=== PATIENT | male | born 1960 | race Caucasian/White ===

== ENCOUNTER 2023-04-18 06:49 | Outpatient (CLI) | payer BC, SELFPAY ==
[2023-04-18 08:11] LABS: Basophils Absolute Auto 0.1 K/mm3 (0.0-0.1); Basophils Percent Auto 0.4 % (0.2-1.2); Eosinophils Absolute Auto 0.1 K/mm3 (0-0.3); Eosinophils Percent Auto 0.5 % (0-4.4); Hemoglobin 14.5 g/dL (14.0-18.0); Immature Granulocyte Absolute 0.09 K/mm3 (0.00-0.031); Immature Granulocyte Percent A 0.7 % (0-0.5); Lymphocytes Absolute Auto 1.21 K/mm3 (0.9-3.2); Lymphocytes Percent Auto 9.4 % (18.3-44.2); Mean Corpuscular HGB Conc 33.7 g/dl (32-36); Mean Corpuscular Hemoglobin 31.9 pg (26-34); Mean Corpuscular Volume 94.7 fl (80-100); Mean Platelet Volume 9.7 fl (7.4-10.4); Monocytes Absolute Auto 1.3 K/mm3 (0.1-0.6); Monocytes Percent Auto 10.3 % (2.6-8.5); Neutrophils Absolute Auto 10.2 K/mm3 (1.3-6.7); Neutrophils Percent Auto 78.7 % (45.5-73.1); Platelet Count Result 246 k/mm3 (150-375); Red Blood Count 4.54 M/mm3 (4.6-6.20); Red Cell Distribution Width 11.7 % (11.5-14.5); White Blood Count 12.9 K/mm3 (4.5-10.0)
[2023-04-18 08:24] LABS: Alanine Aminotransferase 36 U/L (6-50); Albumin Level 4.2 g/dL (3.5-5.1); Alkaline Phosphatase 76 U/L (38-126); Anion Gap 6 mmol/L (8-16); Aspartate Amino Transferase 31 U/L (17-59); Bilirubin,Total 1.1 mg/dL (0.2-1.3); Blood Urea Nitrogen 16 mg/dL (9-20); Calcium 9.1 mg/dL (8.4-10.2); Carbon Dioxide 31 mmol/L (22-30); Chloride 98 mmol/L (98-107); Cholesterol 186 mg/dL (0-200); Estimated Glomerular Filt Rate > 60; Glucose 100 mg/dL (65-110); HDL Direct 54 mg/dL; Sodium 135 mmol/L (137-145); Triglycerides 57 mg/dL (<150)
[2023-04-18 08:25] LABS: Hemoglobin A1C 5.3 % (<5.7)
[2023-04-18 08:36] LABS: LDL Cholesterol Direct 108 mg/dL
[2023-04-18 08:45] LABS: Erythrocyte Sedimentation Rate 14 mm/hr (0-20)
[2023-04-18 09:44] LABS: Hepatitis B Surface Antigen Negative (Negative)
[2023-04-18 09:52] LABS: HAV RESULT Negative (Negative); Hepatitis B Core IgM Result Negative (Negative)
[2023-04-18 10:02] LABS: Hepatitis C Virus Antibody Negative (Negative)
[2023-04-21 14:19] LABS: HIV 1 RNA PCR Not Detected Copies/mL; HIV 1 RNA PCR Not Detected Log cps/mL
[2023-04-23 19:34] LABS: PSA, Free 0.16 ng/mL; PSA, Total 0.7 ng/mL (<=4.0)
== END 2023-04-18 06:50 | disposition home or self-care (01) ==
PROVIDERS: PCP Family Medicine; Visit Provider Family Medicine
DX: Z00.00 Encounter for general adult medical examination without abnormal findings (principal); Z20.2 Contact with and (suspected) exposure to infections with a predominantly sexual mode of transmission; Z13.1 Encounter for screening for diabetes mellitus; I10 Essential (primary) hypertension; E78.2 Mixed hyperlipidemia; N40.1 Benign prostatic hyperplasia with lower urinary tract symptoms; R55 Syncope and collapse
CPT/HCPCS: 36415; 80053; 80061; 80074; 83036; 84153; 84154; 84443; 85025; 85652; 86695; 86696; 87536